=== PATIENT | female | born 1990 | race African-American/Black ===

== ENCOUNTER 2016-10-30 21:56 | Emergency (ER) | payer OTHER ==
[2016-10-30 22:00] VITALS: BP 120/70; PULSE 69; TEMP 97.4; BMI 26.6
[2016-10-30] MEDS ORDERED: ALBUTEROL SO4 2.5/IPRATROPIUM 0.5 INH SOL 3 ML VIAL.NEB. NEB ONE (22:02)
[2016-10-30] MEDS ORDERED: methylPREDNISolone NA SUCC 125 MG/2 ML VIAL IVPB ONE (22:08)
[2016-10-30] MEDS ORDERED: SODIUM CHLORIDE 1,000 ML IV STA (22:08)
[2016-10-30] MEDS ORDERED: EPINEPHrine 1:1,000 0.3 MG/0.3 ML SYR IM ONE (22:08)
[2016-10-30] MEDS ORDERED: FAMOTIDINE 20 MG/50 ML IVPB 50 ML IVPB ONE ×2 (22:08→22:17)
[2016-10-30] MEDS ORDERED: EPINEPHrine/PF 1 MG/1 ML (1:1,000) AMPULE ONE (22:09)
[2016-10-30] MEDS ORDERED: methylPREDNISolone NA SUCC 125 MG/2 ML VIAL ONE (22:09)
--- NOTE | 2016-10-30 22:36 | PDOC ---
History of Present Illness - History of Present Illness Initial Comments: 10/30/16 22:36 The patient is a 26 year old female, with no significant past medical history, who presents to the emergency department with chest tightness and difficulty breathing after sitting at a [employer] restaurant while they were cutting seafood around her this evening. She reports feeling like her throat was closing, as well as, wheezing and came straight to the emergency department. She denies chest pain, headache and dizziness. She denies fever, chills, nausea , vomit, diarrhea and constipation. She denies dysuria, frequency, urgency and hematuria. Allergies: NKDA PCP - Dr. Wojciech Whitehead <Eda Lam - Last Filed: 10/30/16 22:36> - General History Source: Patient Exam Limitations: No Limitations <Aaron Camargo - Last Filed: 10/31/16 01:38> - General Chief Complaint: Allergic Reaction Stated Complaint: DIFF BREATHING Time Seen by Provider: 10/30/16 22:08 Past History <Eda Lam - Last Filed: 10/30/16 22:36> - Immunization History Immunization Up to Date: Yes - Psycho/Social/Smoking Cessation Hx Anxiety: No Suicidal Ideation: No Smoking History: Never smoked Number of Cigarettes Smoked Daily: 0 Information on smoking cessation initiated: No Hx Alcohol Use: No Drug/Substance Use Hx: No Substance Use Type: None <Aaron Camargo - Last Filed: 10/31/16 01:38> - Past Medical History Allergies/Adverse Reactions: Allergies Allergy/AdvReac Type Severity Reaction Status Date / Time shellfish derived Allergy Verified 10/30/16 21:57 Home Medications: Ambulatory Orders Loratadine [Claritin -] 10 mg PO DAILY 10/30/16 Diphenhydramine HCl [Benadryl -] 25 mg PO Q6H PRN #28 capsule 10/31/16 Epinephrine [Adrenaclick] 0.3 mg IJ ONCE PRN #2 ml 10/31/16 Famotidine [Pepcid] 20 mg PO BID PRN #14 tablet 10/31/16 Prednisone [Deltasone -] 60 mg PO DAILY #12 tablet 10/31/16 Review of Systems - Review of Systems Able to Perform ROS?: Yes Comments:: 10/30/16 22:37 GENERAL/CONSTITUTIONAL: No fever or chills. No weakness. HEAD, EYES, EARS, NOSE AND THROAT: (+) throat closing. No change in vision. No ear pain or discharge. No sore throat. CARDIOVASCULAR: (+) chest tightness. RESPIRATORY: (+) SOB and wheezing. No cough or hemoptysis. GASTROINTESTINAL: No nausea, vomiting, diarrhea or constipation. GENITOURINARY: No dysuria, frequency, or change in urination. MUSCULOSKELETAL: No joint or muscle swelling or pain. No neck or back pain. SKIN: No rash NEUROLOGIC: No headache, vertigo, loss of consciousness, or change in strength/ sensation. ENDOCRINE: No increased thirst. No abnormal weight change. HEMATOLOGIC/LYMPHATIC: No anemia, easy bleeding, or history of blood clots. ALLERGIC/IMMUNOLOGIC: No hives or skin allergy. <Eda Lam - Last Filed: 10/30/16 22:36> *Physical Exam - Vital Signs Last Vital Signs Temp Pulse Resp BP Pulse Ox 97.4 F L 69 16 120/70 91 L 10/30/16 21:58 10/30/16 21:58 10/30/16 21:58 10/30/16 21:58 10/30/16 21:58 - Physical Exam Comments: 10/30/16 22:37 GENERAL: Awake, alert, and fully oriented, in no acute distress HEAD: No signs of trauma EYES: PERRLA, EOMI, sclera anicteric, conjunctiva clear ENT: Auricles normal inspection, hearing grossly normal, nares patent, oropharynx clear without exudates. Moist mucosa NECK: Normal ROM, supple, no lymphadenopathy, JVD, or masses LUNGS: (+) Breathing and speaking in full sentences, Mild wheezing bilaterally, Mildly tachypneic in the mid 20s, Oropharynx with no edema or swelling. Breath sounds equal, No and no crackles HEART: Regular rate and rhythm, normal S1 and S2, no murmurs, rubs or gallops ABDOMEN: Soft, nontender, normoactive bowel sounds. No guarding, no rebound. No masses EXTREMITIES: Normal range of motion, no edema. No clubbing or cyanosis. No cords, erythema, or tenderness NEUROLOGICAL: Cranial nerves II-XII intact. Normal speech, normal gait. Sensation intact in upper and lower extremities. 5/5 motor strength in upper and lower extremities. No pronator drift. Finger to nose intact. Rapid alternations intact. SKIN: Warm, Dry, normal turgor, no rashes or lesions noted. <Eda Lam - Last Filed: 10/30/16 22:36> - Vital Signs Last Vital Signs Temp Pulse Resp BP Pulse Ox 97.4 F L 69 16 120/70 91 L 10/30/16 21:58 10/30/16 21:58 10/30/16 21:58 10/30/16 21:58 10/30/16 21:58 <Aaron Camargo - Last Filed: 10/31/16 01:38> ED Treatment Course - Medications Given in the ED: ED Medications Discontinued Medications Generic Name Dose Route Start Last Admin Trade Name Freq PRN Reason Stop Dose Admin Epinephrine HCl 0.3 mg 10/30/16 22:08 10/30/16 22:16 Epipen 0.3mg - IM 10/30/16 22:09 0.3 mg ONCE ONE Administration <Eda Lam - Last Filed: 10/30/16 22:36> Medical Decision Making - Medical Decision Making 10/30/16 22:10 A portion of this note was documented by scribe services under my direction. I have reviewed the details of the note, within reason, and agree with the documentation with the following case summary and management plan written by me. Patient treated in the ED. Nursing notes are reviewed and incorporated into the medical decision-making. Vital signs reviewed. Peripheral IV access obtained by the nurse, laboratory studies are drawn and sent, reviewed and interpreted by myself. Vital Signs Temp Pulse Resp BP Pulse Ox 97.4 F L 69 16 120/70 91 L 10/30/16 21:58 10/30/16 21:58 10/30/16 21:58 10/30/16 21:58 10/30/16 21:58 26-year-old female with no past medical history presents with ALLERGIC reaction. The patient was at [employer] and noted seafood and shellfish smells. She subsequently became short of breath, wheezy and felt like her throat since and closing. She mainly came to the ER. The patient was placed on nebulizers but speaking in full sentences. O2 sat was 91%. Patient's oropharynx demonstrated no abnormal abnormalities at this time. A dose of epinephrine injection 0.3 mg was ordered. Patient was given Benadryl, Solu- Medrol and Pepcid. Patient appears to be improving more comfortable. We'll observe for several hours and discharge if stable. 10/31/16 01:26 The patient has been observed for approx 3.5 hrs. The patient reports feeling well. I had warned patient about the rebound phenomenom with allergic reactions. Patient verbalizes that if she has reoccurrence of allergic reaction , she should return to the ER. She is eager to go home. She will go home with family. I discussed the physical exam findings, ancillary test results and final diagnoses with the patient. I answered all of the patient's questions. The patient was satisfied with the care received and felt comfortable with the discharge plan and treatment plan. The patient will call their primary care physician within 24 hours to arrange follow-up and will return to the Emergency Department with any new, persistant or worsening symptoms. <Aaron Camargo - Last Filed: 10/31/16 01:38> *DC/Admit/Observation/Transfer - Attestations Scribe Attestion: 10/30/16 22:38 Documentation prepared by Eda Lam, acting as medical aides teacher for Aaron Camargo MD, MD <Eda Lam - Last Filed: 10/30/16 22:36> - Discharge Dispostion Admit: No <Aaron Camargo - Last Filed: 10/31/16 01:38> Diagnosis at time of Disposition: Allergic reaction Qualifiers: Encounter type: initial encounter Qualified Code(s): T78.40XA - Allergy, unspecified, initial encounter - Discharge Dispostion Disposition: HOME Condition at time of disposition: Improved - Prescriptions Prescriptions: Epinephrine [Adrenaclick] 0.3 mg IJ ONCE PRN #2 ml PRN Reason: Anaphylaxis Diphenhydramine HCl [Benadryl -] 25 mg PO Q6H PRN #28 capsule PRN Reason: Itching/Allergic Reaction Prednisone [Deltasone -] 60 mg PO DAILY #12 tablet Famotidine [Pepcid] 20 mg PO BID PRN #14 tablet PRN Reason: Abdominal Pain/Allergic Reacti - Referrals Referrals: Wojciech Whitehead [Primary Care Provider] - Rolf Hurtado MD [Staff Physician] - - Patient Instructions Printed Discharge Instructions: DI for Adverse Drug Reaction -- Allergic Additional Instructions: Please take the benadryl and/or pepcid as needed. Please take the prednisone daily for the next 4 days. Drink plenty of fluids and rest. If you develop throat swelling, difficulty breathing from seafood, please use the adrenaclick and return to the ER.
== END 2016-10-31 01:56 | disposition home or self-care (01) ==
LOC: JER 21:56
PROC: 3E033GC Introduction of Other Therapeutic Substance into Peripheral Vein, Percutaneous Approach (ICD-10-PCS; principal; 2016-10-30)
PROC: 3E0333Z Introduction of Anti-inflammatory into Peripheral Vein, Percutaneous Approach (ICD-10-PCS; 2016-10-30)
PROC: 3E023GC Introduction of Other Therapeutic Substance into Muscle, Percutaneous Approach (ICD-10-PCS; 2016-10-30)
DX: T78.49XA Other allergy, initial encounter (principal); X58.XXXA Exposure to other specified factors, initial encounter
CPT/HCPCS: 84703; 96365; 96372; 96375; 99281-25; 99282-25

== ENCOUNTER 2021-10-20 10:34 | Emergency (ER) | payer OTHER ==
[2021-10-20 10:49] VITALS: BP 116/86; PULSE 64; TEMP 98.6; BMI 31.1
[2021-10-20] MEDS ORDERED: TETRACAINE 0.5% HCL 0.6ML DROPPER.BOTTLE OS ONE (11:33)
[2021-10-20] MEDS ORDERED: FLUORESCEIN NA 1 EA STRIP OD ONE (11:33)
[2021-10-20] MEDS ORDERED: IBUPROFEN 600 MG TABLET (FP) PO ONE ×2 (11:33→11:37)
[2021-10-20] MEDS ORDERED: FLUORESCEIN NA 1 EA STRIP ONE (11:37)
[2021-10-20] MEDS ORDERED: ERYTHROMYCIN 0.5% OPHTHALMIC OINTMENT 3.5 GM TUBE OS ONE (11:56)
[2021-10-20] MEDS ORDERED: ERYTHROMYCIN 0.5% OPHTHALMIC OINTMENT 3.5 GM TUBE ONE (11:57)
== END 2021-10-20 12:18 | disposition home or self-care (01) ==
LOC: JERFT 10:34
DX: S05.02XA Injury of conjunctiva and corneal abrasion without foreign body, left eye, initial encounter (principal); W50.4XXA Accidental scratch by another person, initial encounter
CPT/HCPCS: 99283-25